=== PATIENT | female | born 1955 | race Caucasian/White ===

== ENCOUNTER 2022-11-19 12:32 | Emergency (ER) | payer MEDICARE ==
[~2022-11-19] VITALS: Ht 167.6 cm; Wt 80.0 kg
[2022-11-19 14:58] VITALS: BP 112/53; PULSE 18; RESP 18; TEMP 97.6; O2SAT 97
[2022-11-19] MEDS ORDERED: ACET-1080 PO (16:42)
== END 2022-11-19 16:45 | disposition home or self-care (01) ==
LOC: ER 12:32
DX: S46.911A Strain of unspecified muscle, fascia and tendon at shoulder and upper arm level, right arm, initial encounter (principal); S80.02XA Contusion of left knee, initial encounter; M19.011 Primary osteoarthritis, right shoulder; M17.12 Unilateral primary osteoarthritis, left knee; Z79.899 Other long term (current) drug therapy; Z88.0 Allergy status to penicillin; W01.0XXA Fall on same level from slipping, tripping and stumbling without subsequent striking against object, initial encounter; Y93.89 Activity, other specified; Y92.89 Other specified places as the place of occurrence of the external cause; Y99.8 Other external cause status
CPT/HCPCS: 73030; 73562

== ENCOUNTER 2022-12-25 23:05 | Emergency (ER) | payer MEDICARE ==
[~2022-12-25] VITALS: Ht 167.6 cm; Wt 80.0 kg
[~2022-12-25 23:05] MED LIST: ACET-1080 PO
[2022-12-25 23:45] VITALS: PULSE 70; RESP 70; TEMP 98.6; O2SAT 99
[2022-12-26 00:06] LABS: Basophils # (auto) 0 10 ^3/uL (0-0.2); Basophils % (auto) 0.3 % (0.0-2.0); Eosinophils # (auto) 0.1 10 ^3/uL (0-0.8); Eosinophils % (auto) 2.4 % (0.0-7.0); Hematocrit 34.7 % (36.0-46.0); Hemoglobin 11.6 g/dL (12.2-16.2); Lymphocytes # (auto) 0.3 10 ^3/uL (0.4-5.4); Lymphocytes % (auto) 11.5 % (10.0-50.0); Mean Corpuscular Hemoglobin 29.8 pg (28.0-32.0); Mean Corpuscular Hgb Conc. 33.5 g/dL (32.0-36.0); Monocytes # (auto) 0.3 10 ^3/uL (0-1.3); Monocytes % (auto) 11.4 % (0.0-12.0); Neutrophils # (auto) 2.2 10 ^3/uL (1.6-8.6); Neutrophils % (auto) 74.4 % (37.0-80.0); Red Cell Distribution Width 13.2 % (11.8-14.3)
[2022-12-26 00:17] LABS: Anion Gap 5 (5-15); Carbon Dioxide 26 mmol/L (20-30); Chloride 103 mmol/L (98-107); Potassium 3.7 mmol/L (3.5-5.1); Sodium 134 mmol/L (136-145)
[2022-12-26 00:18] LABS: Calcium 9.1 mg/dL (8.7-10.4); INR 0.99 (0.9-1.15); Partial Thromboplastin Time 28.7 SEC (24.5-34.5); Prothrombin Time 10.4 sec (9.3-11.8)
[2022-12-26 00:22] LABS: Alkaline Phosphatase 89 U/L (46-116)
[2022-12-26 00:23] LABS: BUN/Creatinine Ratio 17.8 (10.0-20.0); Blood Urea Nitrogen 13 mg/dL (9-23); Glucose 103 mg/dL (74-106); Magnesium 1.8 mg/dL (1.6-2.6)
[2022-12-26 00:24] LABS: Albumin 3.8 g/dL (3.2-4.8); Aspartate Aminotransferase 30 U/L (13-40)
[2022-12-26 00:25] LABS: Bilirubin, Total 0.6 mg/dL (0.2-1.0); Total Protein 7.4 g/dL (5.7-8.2)
[2022-12-26] MEDS ORDERED: METOPROLOL TARTRATE 1MG/1ML-5ML VIAL IV ONE (00:30)
[2022-12-26] MEDS ORDERED: LORazepam 0.5 MG TAB PO ONE (00:30)
[2022-12-26 00:43] LABS: Alanine Aminotransferase 14 U/L (7-40)
[2022-12-26] MEDS ORDERED: METOPROLOL TARTRATE 25 MG TAB PO ONE (03:45)
[2022-12-26 06:54] VITALS: BP 135/64; PULSE 88; RESP 22; O2SAT 97
== END 2022-12-26 06:57 | disposition home or self-care (01) ==
LOC: ER 23:05 → EDUNIT# 23:05 → EDBD 23:05 → ER 12-26 06:57
DX: R68.83 Chills (without fever) (principal); R00.2 Palpitations; F41.9 Anxiety disorder, unspecified; I10 Essential (primary) hypertension; Z88.0 Allergy status to penicillin; Z88.1 Allergy status to other antibiotic agents; Z79.899 Other long term (current) drug therapy
CPT/HCPCS: 36415; 71045; 80053; 80320; 83735; 83880; 84443; 84484; 85025; 85379; 85610; 85730; 93005